=== PATIENT | male | born 2000 | race Caucasian/White ===

== ENCOUNTER 2021-07-03 17:05 | Emergency (ER) | payer MEDICAID ==
--- NOTE | 2021-07-03 17:53 | ERPHSYRPT ---
- History of Present Illness Source: patient Exam Limitations: no limitations Patient Subjective Stated Complaint: SWELLING IN LEFT LOWER LEG, BRUISING, PAIN IN ANKLE FOR PAST 1 WEEK. PATIENT STATES HE HAD XRAYS DONE ONE WEEK AGO AT [facility]. WAS TOLD HIS ANKLE WAS FRACTURED, BUT NOT GIVEN ANY FURTHER INSTRUCTIONS. Triage Nursing Assessment: ALERT AND ORIENTED. ABULATED INTO ED ROOM WITH CRUTCHES, NON WEIGHT BEARING. LEFT LEG COOL TO TOUCH BELOW KNEE,BRUISING OF VARYING DEGREES. PEDAL PULSE PRESENT IN BILATERAL. LEFT FOOT PITTING EDEMA 4+, PALE IN COLOR. Physician History: 20 yo wm w L ankle pain/edema s/p someone stepping on ankle on 06/24/21. Pt state that [facility] told him that he had a broken ankle. XR report obtained which states L ankle STS w mild widening of medial clear space. Method of Injury: direct blow (Someone stepped on it) Occurred: other (06/24/21) Quality: aching Severity of Pain-Max: moderate Severity of Pain-Current: moderate Lower Extremities Pain: ankle: left Modifying Factors: Improves With: movement Associated Symptoms: unable to bear weight Allergies/Adverse Reactions: No Known Drug Allergies Allergy (Unverified 07/03/21 17:19) Home Medications: No Reportable Medications [No Reported Medications] 07/03/21 [History] Hx Tetanus, Diphtheria Vaccination/Date Given: Yes Hx Influenza Vaccination/Date Given: No Hx Pneumococcal Vaccination/Date Given: No Immunizations Up to Date: No Travel Risk - International Travel Have you traveled outside of the country in past 3 weeks: No - Coronavirus Screening Are you exhibiting any of the following symptoms?: No - Vaccine Status Have you recieved a Covid-19 vaccination: No - Review of Systems Constitutional: No Symptoms Eyes: No Symptoms Ears, Nose, & Throat: No Symptoms Respiratory: No Symptoms Cardiac: No Symptoms Abdominal/Gastrointestinal: No Symptoms Genitourinary Symptoms: No Symptoms Musculoskeletal: Arthralgias Skin: No Symptoms Neurological: No Symptoms Psychological: No Symptoms Endocrine: No Symptoms Hematologic/Lymphatic: No Symptoms Immunological/Allergic: No Symptoms - Past Medical History Pertinent Past Medical History: No - Past Surgical History Past Surgical History: No - Social History Smoking Status: Never smoker Drug Use: none Significant Family History: no pertinent family hx - Nursing Vital Signs Nursing Vital Signs: Initial Vital Signs Pulse Rate 94 H 07/03/21 17:20 Respiratory Rate 22 07/03/21 17:20 Blood Pressure 148/102 07/03/21 17:20 O2 Sat by Pulse Oximetry 98 07/03/21 17:20 Pain Scale Pain Intensity 4 Hypertensive - Physical Exam General Appearance: no apparent distress Eyes, Ears, Nose, Throat Exam: normal ENT inspection, TMs normal, pharynx normal, moist mucous membranes Neck Exam: normal inspection, non-tender, supple, full range of motion, No Brudzinski, No Kernig's, No meningismus Cardiovascular/Respiratory Exam: normal breath sounds, regular rate/rhythm, heart sounds normal, no ecchymosis Gastrointestinal/Abdominal Exam: non-tender, soft, no organomegaly Back Exam: normal inspection, normal range of motion Hips Exam: bilateral: non-tender, normal inspection, normal range of motion Legs Exam: bilateral leg: non-tender, normal inspection, normal range of motion, no evidence of injury Knees Exam: bilateral knee: non-tender, normal inspection, normal range of motion, no evidence of injury Ankle Exam: left ankle: swelling (Marked medial/lateral edema/TTP laterally greater than medially/Good pedal pulse, distal sensation, and capillary return) Foot Exam: left foot: swelling (L dorsal foot/NTTP/Good pedal pulse, distal sensation, and capillary return) DTR - Lower Extremities Exam: knee (R): 2+, knee (L): 2+ Neuro/Tendon Exam: normal sensation, normal motor functions, normal tendon functions, responds to pain Mental Status Exam: alert, oriented x 3, cooperative Skin Exam: normal color SpO2 Interpretation: normal SpO2: 98 O2 Delivery: Room Air - Course Nursing assessment & vital signs reviewed: Yes - Radiology Exams Ankle X-ray Interpretation: Interpreted by me (L ankle neg per ER read) - CT Exams Lower Extremity CT Interpretation: Discussed w/radiologist (L ankle STS/No fx) Ordered Tests: Active Orders 24 hr Category Date Time Status Splint STAT Care 07/03/21 18:40 Completed ANKLE (3 VIEWS) Stat Exams 07/03/21 17:29 Taken LOWER EXTREMITY WO CONTRAST [CT] Stat Exams 07/03/21 17:39 Taken D-DIMER QUANTITATIVE Stat Lab 07/03/21 17:34 Completed Lab/Rad Data: Laboratory Results 07/03/21 Range/Units 17:34 D-Dimer 454 (215-500) ng/mL - Progress Progress: improved Progress Note: 07/03/21 18:41 Pt refuses IM toradol Air cast L ankle per nursing/NVI Counseled pt/family regarding: diagnosis, need for follow-up, rad results - Departure Departure Disposition: Home Clinical Impression: Ankle sprain Condition: Stable Critical Care Time: No Referrals: DOCTOR,NO FAMILY [Primary Care Provider] - Follow up/PCP as directed ORTHO - [facility] [NON-STAFF PHY W/O PRIVILEGES] - Follow up/PCP as directed Instructions: Ankle Sprain (DC) Additional Instructions: Motrin/Tylenol for pain Weight bearing as tolerated Follow up in Ortho clinic M-Fr 8-10:00AM Use air cast for 3-4 days
[2021-07-03 18:27] VITALS: BP 158/80; PULSE 71
[2021-07-03 18:44] VITALS: O2SAT 98
--- NOTE | 2021-07-04 08:45 | XRAY ---
Indication: Pain and swelling following injury one week ago. Multiple contiguous axial images obtained through the left ankle. Sagittal and coronal reformatted images obtained. Comparison: None Left ankle mortise appears anatomic. Negative for tarsal coalition. Mild soft tissue swelling centered around the ankle. 2 punctate calcifications posterior to distal tibia possibly accessory ossicles. Fracture fragments not completely excluded. Small accessory ossicle medial to the navicular bone. 3 mm and 4 mm talus bone islands. No other bony or articular abnormalities. Visualized noncontrasted soft tissues including Achilles tendon unremarkable. Impression: 1. Punctate calcification posterior to distal tibia either accessory ossicles versus fracture fragments. 2. Soft tissue swelling, navicular accessory ossicle, and talus bone islands.
--- NOTE | 2021-07-04 08:45 | XRAY ---
Indication: Pain and swelling following injury one week ago. Comparison: None 3 view left ankle demonstrates mild soft tissue swelling. No other bony, articular, or soft tissue abnormalities.
== END 2021-07-03 18:55 | disposition home or self-care (01) ==
LOC: ED 17:05
DX: S93.402A Sprain of unspecified ligament of left ankle, initial encounter (principal); W50.0XXA Accidental hit or strike by another person, initial encounter; R60.0 Localized edema; M25.572 Pain in left ankle and joints of left foot
CPT/HCPCS: 36415; 73610; 73700; 85379; 99284